=== PATIENT | female | born 1975 | race Caucasian/White ===

== ENCOUNTER → 2024-03-20 09:40 | Outpatient (REF) | payer BC, SELFPAY | LOC: HWWDC 09:40 | PROVIDERS: ATTENDING PHYSICIAN Physician Assistant Medical | DX: Z12.31 Encounter for screening mammogram for malignant neoplasm of breast (principal) | CPT/HCPCS: 77063; 77067 ==

== ENCOUNTER → 2024-05-26 08:28 | Outpatient (REF) | payer BC, SELFPAY | LOC: WDC 08:28 | PROVIDERS: ATTENDING PHYSICIAN Physician Assistant Medical | DX: R92.8 Other abnormal and inconclusive findings on diagnostic imaging of breast (principal) | CPT/HCPCS: 76642 ==

== ENCOUNTER → 2025-05-28 08:10 | Outpatient (REF) | payer BC, SELFPAY | LOC: HWRAD 08:10 | PROVIDERS: FAMILY PHYSICIAN Physician Assistant Medical | DX: N93.9 Abnormal uterine and vaginal bleeding, unspecified (principal) | CPT/HCPCS: 76830; 76856 ==